=== PATIENT | male | born 1990 | race Caucasian/White ===

== ENCOUNTER 2016-07-28 22:30 | Emergency (ER) | payer SELFPAY ==
[~2016-07-28] VITALS: Ht 185.4 cm; Wt 74.8 kg
== END 2016-07-29 00:15 | disposition short-term general hospital (02) ==
LOC: ER 22:30
DX: S39.012A Strain of muscle, fascia and tendon of lower back, initial encounter (principal); F10.129 Alcohol abuse with intoxication, unspecified; Z23 Encounter for immunization; V86.69XA Passenger of other special all-terrain or other off-road motor vehicle injured in nontraffic accident, initial encounter
CPT/HCPCS: G0480; J8499